=== PATIENT | male | born 1985 ===

== ENCOUNTER 2023-11-29 12:51 | Outpatient (AMB) | payer OTHER, SELFPAY ==
--- NOTE | 2023-11-29 12:54 | A.OFFPC_ITS ---
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
--- NOTE | 2023-11-29 12:54 | MHC.PC.OV ---
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
--- NOTE | 2023-11-29 13:04 | A.OFFPC_ITS ---
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 He followed with [facility] up until 8 years ago. He reports a significant past medical history of anxiety, depression, dyslipidemia and eczema. He is accompanied today by his , Shannon. CV: reports a hx of diet controlled dyslipidemia. bp is elevated today at 148/90. He states in the past he has controlled his blood pressure with diet and exercise. No chest pain or shortness a breath. He states that he is never needed to be on medications for this. He is active at home and with his job and states that he does not notice any dizziness, chest pain, palpitations, leg s welling. GI: he complains today of for the last 2-3 months he feels like his GI tract has slowed down. He states when he eats he gets bloated and does have belching. He feels like the food just sits there. He states sometimes when he eats he gets this sharp pain in his epigastric region across his abdomen. It is usually more located in the central aspect but does sometimes go to both sides. He has a gnawing pain at times in his abdomen that gets exacerbated with eating. Not eating makes it better. He has a history of GERD and states that he used to be on omeprazole but did not think about trying this because it does not feel the same. He states at that point he had had acid in chest pain in this was 8 years ago. He states that he did not really think that this could be related to heartburn. He has noticed some increased constipation over the last few months as well. He does have a daily bowel movement but sometimes feels that it is harder to go or that he has not fully gone. No rectal bleeding. He does get some nausea with the epigastric pain but no vomiting. No difficulty swallowing or weight changes. He states he is just very worried because his father had colon ca. He has not made diet modifications. He does endorse a relatively poor diet. Psych: states he has a hx of depression and anxiety. He does not feel like it is currently exacerbated and it was more related to his lifestyle. He has never been on medications for this and states that it has always resolved with exercise. He tells me that that is plan to start exercising with this. Denies any SI/HI. He does feel fatigue and sometimes wonders if it is related to the anxiety but also does not sleep well. He does report snoring often at night. His is present with him and states that at times she has noticed that he stops breathing. Derm: States he has a flare up of eczema on his on his right knee and hydrocortisone cream does not seem to be strong enough. It does help with the itching but his skin is still a bit inflamed. He also reports flaking and cracked skin on the bottom of his right foot. Hydrocortisone cream helps with the itching. 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 Sees ophthalmology annually. Overdue for a dental exam. [facility] Medical History (Updated 11/29/23 @ 14:08 by Swati Kuo PA-C) Atopic dermatitis Snoring Elevated blood pressure reading in office without diagnosis of hypertension Dyslipidemia Family History (Updated 11/29/23 @ 13:28 by Jaida Lopez CMA) Father Colon cancer HTN (hypertension) Hypercholesteremia Cardiovascular disease Alcoholism Maternal Grandmother Asthma Hypercholesteremia Paternal Grandmother HTN (hypertension) Maternal Grandfather HTN (hypertension) Alcoholism Paternal Grandfather HTN (hypertension) Alcoholism Mother Breast cancer Paternal Grandfather Alcoholism Other Substance abuse Social History (Updated 11/29/23 @ 13:13 by Jaida Lopez [facility]) Housing: House Patient Tobacco Use Status: Never used Tobacco e-Cigarette/Vaping Use: Never Used Second Hand Smoke Exposure: No service: No Current occupational status: employed Current occupation: [employer] Current occupational exposures/hazards: No Cognitive needs: No Hearing needs: No Vision needs: No Questionnaire PHQ-9 Over the last 2 weeks, how often have you been bothered by any of the following problems? 1. Little interest or pleasure in doing things: several days 2. Feeling down, depressed, or hopeless: several days 3. Trouble falling or staying asleep, or sleeping too much: not at all 4. Feeling tired or having little energy: more than half the days 5. Poor appetite or overeating: not at all 6. Feeling bad about yourself - or that you are a failure or have let yourself or your family down: several days 7. Trouble concentrating on things, such as reading the newspaper or watching television: several days 8. Moving or speaking so slowly that other people could have noticed. Or the opposite - being so fidgety or restless that you have been moving around a lot more than usual: not at all 9. Thoughts that you would be better off or of hurting yourself in some way: several days Total score: 7 Depression Screening Interpretation: Positive Depression Screening Follow-up: Existing condition, Follow-up Visit Requested and Declines treatment Depression Screening Done: Yes 13270 - PHQ-9 Billing: Yes Source: Developed by Drs. Jensen Maradiaga, Ammy Osorio, Carlitos Carrasco and colleagues, with an educational master from [employer]. Thrive Questionnaire Date Thrive assessed: 11/29/23 I am a: Patient What is your living situation today?: I have a steady place to live Within the past 12 months, did the food you bought not last and you didn't have the money to get more?: Never true Within the past 12 months, did you worry whether your food would run out before you got money to buy more?: Never true Do you have trouble paying for medicines?: No Do you have trouble getting transportation to medical appointments?: No Do you have trouble paying your heating and electricity bill?: No Do you have trouble taking care of your child, family member or friend?: No Do you have trouble with day-to-day activities such as bathing, preparing meals, shopping, managing finances, etc.?: No Are you currently unemployed and looking for a job?: No Are you interested in more education?: No Please select the resources that you would like help with: None Currently or been in a relationship where the following occur: no concerns reported THRIVE Score: 0 AUDIT C Alcohol Use Questionnaire (AUDIT-C) 1. How often do you have a drink containing alcohol?: Never 3. How often do you have six or more drinks on one occasion?: Never Total Score: 0 DENISE-7 AMB Questionnaire DENISE-7 Date DENISE - 7 assessed: 11/29/23 Feeling nervous, anxious, or on edge: 2 = More than half the days Not being able to stop or control worryin = More than half the days Worrying too much about different things: 1 = Several days Trouble relaxin = More than half the days Being so restless that it is hard to sit still: 0 = Not at all Becoming easily annoyed or irritable: 1 = Several days Feeling afraid as if something awful might happen: 1 = Several days Total DENISE-7 score (0-4 normal; 5-9 mild; 10-14 moderate; 15-21 severe): 9 Source: Developed by Drs. Jensen Maradiaga, Ammy Osorio, Carlitos Carrasco and colleagues, with an educational master from [employer]. DENISE-7 Assessment Billing DENISE-7 Assessment Tool: DENISE-7 Assessment 96146 Physical exam (Primary Care) Vital Signs: Last Vital Signs Temp 98.1 F 11/29/23 13:09 Pulse 98 11/29/23 13:09 Resp 16 11/29/23 13:09 BP 148/90 H 11/29/23 13:14 Pulse Ox 98 11/29/23 13:09 Oxygen Delivery Method Room Air 11/29/23 13:09 BMI result Body Mass Index 39.9 BMI Assessment/Plan discussion: High BMI High, discussed plan: lifestyle, weight reduction, dietary and physical activity Tobacco/Smoking Status: Tobacco use Status Tobacco use date assessed 11/29/23 11/29/23 13:13 Patient Tobacco Use Status Never used Tobacco 11/29/23 13:13 e-Cigarette/Vaping Use Never Used 11/29/23 13:13 PHQ-9: PHQ-9 Score PHQ-9: Total score 7 11/29/23 13:30 Depression Screening Interpretation: Positive Depression Screening Follow-up: Existing condition, Follow-up Visit Requested and Declines treatment Thrive Assessment: Date of Thrive Assessment Date Thrive assessed 11/29/23 11/29/23 13:30 Currently or been in a relationship where the following occur: no concerns reported Const Orientation/consciousness: patient oriented x3 HENMT Ears: hearing grossly normal bilaterally, external ears normal and TM's normal bilaterally General nose exam: Normal nasal mucous membranes and turbinates present Face and sinus: Yes sinuses nontender Mouth: Normal oral and palatal mucosa present Eyes Pupils: Equal, round and reactive pupils present EOM: EOMs intact bilaterally Neck Neck: Yes full ROM and Yes no lymphadenopathy Thyroid: Thyroid normal Resp Auscultation: clear to auscultation bilaterally Cardio Rate: regular rate Rhythm: regular rhythm Heart sounds: S1 normal heart sound present and S2 normal heart sound present Peripheral pulses: Peripheral pulses 2+ throughout GI Other: Soft, nontender, bowel sounds present. No CVA tenderness. No rebound or guarding. Rectal Exam - Male: Yes deferred Other: Declined testicular exam. Skin Other: There is a patch of papular, slightly erythematous skin noted over the anterior aspect of the right knee. It is nontender. There is white, flaky skin noted on the plantar aspect of the right foot. Neuro General: patient oriented x3, no focal motor deficits and CN's II-XI intact bilaterally Cranial nerves: Yes Equal, round and reactive pupils present Motor exam (neuro): 5/5 motor strength present throughout Coordination: [id number] test normal Romberg Test: Negative Extrem General: Yes normal to inspection and Yes full ROM Psych Thought content: Normal thought content present Insight: Good insight present (Psych) Judgement: Good judgement present (Psych) Assessment and Plan Assessment & Plan (1) Routine general medical examination at a health care facility: Code(s): Z00.00 - Encounter for general adult medical examination without abnormal findings Plan: Health maintenance reviewed. Labs ordered. (2) Dyslipidemia: Code(s): E78.5 - Hyperlipidemia, unspecified Plan: We will check lipids. We will follow up pending test results. (3) Elevated blood pressure reading in office without diagnosis of hypertension: Code(s): R03.0 - Elevated blood-pressure reading, without diagnosis of hypertension Plan: Does not believe he truly has hypertension. Advised to return for follow up in 2-4 weeks to be rechecked. If still elevated is in agreement to starting medication. Labs ordered today. (4) Snoring: Code(s): R06.83 - Snoring Plan: Sleep study ordered. Encouraged weight loss. (5) Atopic dermatitis: Code(s): L20.9 - Atopic dermatitis, unspecified Qualifiers: Atopic dermatitis type: unspecified Qualified Code(s): L20.9 - Atopic dermatitis, unspecified Plan: We will start on triamcinolone cream. Discussed risks and benefits and adverse effects such as atrophy of the skin with prolonged use. He would like to see Dermatology. Referral placed to [facility]. Phone number provided. (6) Constipation: Code(s): K59.00 - Constipation, unspecified Qualifiers: Constipation type: unspecified constipation type Qualified Code(s): K5 9.00 - Constipation, unspecified Plan: Encouraged hydration, increase fruits and vegetables, fiber and exercise. I have referred him to gastroenterology per his request. (7) Abdominal pain, acute, epigastric: Code(s): R10.13 - Epigastric pain Plan: Abdominal exam today is benign. We will try omeprazole. Advised to complete H pylori test prior to starting omeprazole. Labs ordered. We do have a short term follow up arranged in the next few weeks. He will follow up sooner if anything worsens or changes. (8) Fatigue: Code(s): R53.83 - Other fatigue Qualifiers: Fatigue type: chronic, unspecified Qualified Code(s): R53.82 - Chronic fatigue, unspecified Plan: Sleep study in labs ordered. We did discuss possibility of related to his poor sleep, depression, multifactorial. (9) Tinea pedis of right foot: Code(s): B35.3 - Tinea pedis Plan: We will start on clotrimazole cream. Plan Patient understands and agrees with the plan. Orders: Orders Complete Blood Count Auto Diff Today E78.5 - Hyperlipidemia, unspecified, K59.00 - Constipation, unspecified, R03.0 - Elevated blood-pressure reading, without diagnosis of hypertension, R06.83 - Snoring, R10.13 - Epigastric pain, R53.83 - Other fatigue, Z00.00 - Encounter for general adult medical examination without abnormal findings Comprehensive [place]. Panel Fast Today E78.5 - Hyperlipidemia, unspecified, K59.00 - Constipation, unspecified, R03.0 - Elevated blood-pressure reading, without diagnosis of hypertension, R06.83 - Snoring, R10.13 - Epigastric pain, R53.83 - Other fatigue, Z00.00 - Encounter for general adult medical examination without abnormal findings Lipid Panel Today E78.5 - Hyperlipidemia, unspecified, K59.00 - Constipation, unspecified, R03.0 - Elevated blood-pressure reading, without diagnosis of hypertension, R06.83 - Snoring, R10.13 - Epigastric pain, R53.83 - Other fatigue, Z00.00 - Encounter for general adult medical examination without abnormal findings TSH reflex Free T4 Today E78.5 - Hyperlipidemia, unspecified, K59.00 - Constipation, unspecified, R03.0 - Elevated blood-pressure reading, without diagnosis of hypertension, R06.83 - Snoring, R10.13 - Epigastric pain, R53.83 - Other fatigue, Z00.00 - Encounter for general adult medical examination without abnormal findings RT home sleep study Today E78.5 - Hyperlipidemia, unspecified, K59.00 - Constipation, unspecified, R03.0 - Elevated blood-pressure reading, without diagnosis of hypertension, R06.83 - Snoring, R10.13 - Epigastric pain, R53.83 - Other fatigue, Z00.00 - Encounter for general adult medical examination without abnormal findings H pylori Ag Stool Today R10.13 - Epigastric pain IRON PROFILE Today E78.5 - Hyperlipidemia, unspecified, K59.00 - Constipation, unspecified, R03.0 - Elevated blood-pressure reading, without diagnosis of hypertension, R06.83 - Snoring, R10.13 - Epigastric pain, R53.83 - Other fatigue, Z00.00 - Encounter for general adult medical examination without abnormal findings Vitamin B12 and Folate Today E78.5 - Hyperlipidemia, unspecified, K59.00 - Constipation, unspecified, R03.0 - Elevated blood-pressure reading, without diagnosis of hypertension, R06.83 - Snoring, R10.13 - Epigastric pain, R53.83 - Other fatigue, Z00.00 - Encounter for general adult medical examination without abnormal findings US abdomen complete Today R10.13 - Epigastric pain Referrals Gastroenterology Referral K59.00 - Constipation, unspecified, R10.13 - Epigastric pain, R53.83 - Other fatigue Dermatology Referral L20.9 - Atopic dermatitis, unspecified Medications: New clotrimazole 1% 1 appl topical BID 4 weeks 30 grams 3RF omeprazole 20 mg PO DAILY 30 days 30 caps 1RF triamcinolone acetonide 0.025% prn eczema flare 1 appl topical BID 14 days 80 grams 3RF Coding Level of Care Code New Pt Prev Care 40-64y(18316) Diagnoses Routine general medical examination at a health care facility Z00.00 Dyslipidemia E78.5 Elevated blood pressure reading in office without diagnosis of hypertension R03.0 Snoring R06.83 Atopic dermatitis, unspecified type L20.9 Atopic dermatitis type: unspecified Constipation, unspecified constipation type K59.00 Constipation type: unspecified constipation type Abdominal pain, acute, epigastric R10.13 Chronic fatigue R53.82 Fatigue type: chronic, unspecified Tinea pedis of right foot B35.3 Additional Codes DENISE-7 Assessment Billing - DENISE-7 Assessment Tool: DENISE-7 Assessment 21215 ([id number])
[2023-11-29 13:09] VITALS: BP 148/87; PULSE 98; RESP 16; TEMP 36.7; O2SAT 98; BMI 39.9
[2023-11-29 13:14] VITALS: BP 148/90
== END 2023-11-29 14:12 | disposition home or self-care (01) ==
PROVIDERS: PCP Physician Assistant; Visit Provider Physician Assistant
DX: Z00.00 Encounter for general adult medical examination without abnormal findings (principal); E78.5 Hyperlipidemia, unspecified; R03.0 Elevated blood-pressure reading, without diagnosis of hypertension; R06.83 Snoring; L20.9 Atopic dermatitis, unspecified; K59.00 Constipation, unspecified; R10.13 Epigastric pain; R53.82 Chronic fatigue, unspecified; B35.3 Tinea pedis
CPT/HCPCS: 99386

== ENCOUNTER 2023-11-30 07:48 | Outpatient (REF) | payer OTHER, SELFPAY ==
[2023-11-30 11:23] LABS: MANUAL DIFF FLAG NO
[2023-11-30 11:41] LABS: Basophils Percent Auto 0.6 % (0-2); Eosinophils Absolute Auto 0.1 X10*3/uL (0.0-0.4); Eosinophils Percent Auto 1.2 % (0-4); Hematocrit 44.7 % (42.0-52.0); Hemoglobin 14.5 g/dl (14.0-18.0); Imm Gran Abs Auto 0.06 X10*3/uL (0.00-0.03); Imm Gran Pct Auto 0.9 % (0.0-0.4); Mean Corpuscular HGB Conc 32.4 g/dl (31.0-36.0); Mean Corpuscular Hemoglobin 27.4 pg (27.0-33.0); Mean Corpuscular Volume 84.5 fL (80.0-98.0); Mean Platelet Volume 10.4 fL (9.4-12.4); Monocytes Absolute Auto 0.7 X10*3/uL (0.1-1.2); Monocytes Percent Auto 10.2 % (2-11); Neutrophils Percent Auto 58.1 % (45-73); Platelet Count 272 X10*3/uL (160-400); Red Blood Count 5.29 X10*6/uL (4.60-5.80); Red Cell Distribution Width 13.2 % (11.0-16.0); White Blood Count 6.8 X10*3/uL (4.8-10.8)
[2023-11-30 12:01] LABS: Alanine Aminotransferase 29 U/L (0-40); Albumin Level 4.3 g/dL (3.5-5.0); Alkaline Phosphatase 84 U/L (39-117); Anion Gap 9 (12-20); Aspartate Amino Transferase 28 U/L (5-37); Bilirubin Total 0.8 mg/dL (0.0-1.0); Blood Urea Nitrogen 12 mg/dL (9-16); Calcium 9.2 mg/dL (8.4-10.2); Carbon Dioxide 28 mmol/L (22-29); Chloride 105 mmol/L (96-108); Cholesterol 198 mg/dL (<200); Estimated Glomerular Filt Rate > 60; Glucose Fasting 96 mg/dL (60-99); HDL Cholesterol 38 mg/dL (>40); Iron 62 mcg/dL (45-160); LDL Cholesterol Calculated 136 mg/dL (<100); Percent Iron Saturation 21 % (15-50); Potassium 4.4 mmol/L (3.3-5.1); Sodium 138 mmol/L (135-145); Total Iron Binding Capacity 298 mcg/dL (228-428); Total Protein 7.1 g/dL (6.5-8.0); Triglycerides 122 mg/dL (<150); Unsaturated Iron Binding 236 ug/dL
[2023-11-30 12:19] LABS: TSH reflex Free T4 2.01 uIU/mL (0.32-4.0)
[2023-11-30 18:02] LABS: Folate 10.9 ng/mL (> or = 4.0); Vitamin B12 439 pg/mL (200-900)
== END 2023-11-30 07:49 | disposition home or self-care (01) ==
LOC: HO.WFDLDS 07:48
PROVIDERS: Visit Provider Physician Assistant
DX: Z00.00 Encounter for general adult medical examination without abnormal findings (principal); R10.13 Epigastric pain; R06.83 Snoring; R03.0 Elevated blood-pressure reading, without diagnosis of hypertension; E78.5 Hyperlipidemia, unspecified; K59.00 Constipation, unspecified; R53.83 Other fatigue
CPT/HCPCS: 36415; 80053; 80061; 82607; 82746; 83540; 84443; 85025

== ENCOUNTER 2023-12-08 07:54 | Outpatient (REF) | payer OTHER, SELFPAY ==
--- NOTE | ~2023-12-08 | US_ITS ---
EXAMINATION: US ABDOMEN COMPLETE CLINICAL INFORMATION: Epigastric pain. COMPARISON: None available. TECHNIQUE: Real-time imaging of the abdominal viscera. Limited visualization due to bowel gas. FINDINGS: PANCREAS: Limited visualization. ABDOMINAL AORTA: Limited visualization. Imaged portion of [id number] abdominal aorta is unremarkable. INFERIOR VENA CAVA: Visualized portions are normal. LIVER: Hepatomegaly, 17.4 cm. Increased hepatic parenchymal heterogeneity and echogenicity could be associated with hepatocellular disease/hepatic steatosis and substantially limits visualization. 2.0 x 0.9 x 1.3 cm fairly well-circumscribed hypoechoic lesion in the right hepatic lobe. Hypoechoic areas within the liver adjacent to the gallbladder may represent areas of focal sparing within a fatty liver. GALLBLADDER: No gallstones. No gallbladder wall thickening. COMMON BILE DUCT: Normal in caliber measuring 0.4 cm in diameter. RIGHT KIDNEY: No hydronephrosis. No renal calculi. Limited visualization. The kidney measures 12.4 cm in maximum dimension. LEFT KIDNEY: No hydronephrosis. No renal calculi. Limited visualization. The kidney measures 12.4 cm in maximum dimension. SPLEEN: Normal. The spleen measures 10.8 cm in maximum dimension. FREE FLUID: None. US/US abdomen complete IMPRESSION: Hepatomegaly, 17.4 cm. Increased hepatic parenchymal heterogeneity and echogenicity could be associated with hepatocellular disease/hepatic steatosis and substantially limits visualization. Hypoechoic areas within the liver adjacent to the gallbladder may represent areas of focal sparing within a fatty liver. 2.0 cm fairly well-circumscribed hypoechoic lesion in the right hepatic lobe. MRI is recommended for further characterization.
== END 2023-12-08 07:55 | disposition home or self-care (01) ==
LOC: HO.US 07:54
PROVIDERS: PCP Physician Assistant; Visit Provider Physician Assistant
DX: R10.13 Epigastric pain (principal)
CPT/HCPCS: 76700

== ENCOUNTER 2023-12-20 14:35 | Outpatient (AMB) | payer OTHER, SELFPAY ==
--- NOTE | 2023-12-20 14:46 | A.OFFPC_ITS ---
Vital Signs 12/20/23 14:49 Height 5 ft 8 in Weight 259 lb 8 oz BMI 39.5 BP 118/64 Blood Pressure Location Rt brachial Position Sitting Respiration 16 Pulse 98 Pulse Source Pulse Oximeter Pulse Oximetry (%) 97 Oxygen Delivery Method Room Air Intake Visit Reasons: bp recheck, lab follow up Intake Note: Follow up hypertension Services Engineer Required: No Allergies No Known Allergies Allergy (Verified 12/20/23 14:47) Medication List - Last Reconciled 12/20/23 by Swati Kuo PA-C clotrimazole 1% 1 appl topical BID 4 weeks loratadine (Allergy Relief (loratadine)) 10 mg PO DAILY omeprazole 20 mg PO DAILY 30 days triamcinolone acetonide 0.025% 1 appl topical BID 14 days Tobacco use date assessed: 11/29/23 Dental Screening Dental Screen Date: 11/29/23 HPI bp recheck, lab follow up HPI Details Patient is a 38-year-old male who has a significant past medical history of anxiety, depression, dyslipidemia and eczema presenting today for a bp follow up. CV: bp is today is 118/64. He states in the past he has controlled his blood pressure with diet and exercise. He states since our last visit he has been more careful with his diet and started exercising. His last cholesterol was a little elevated. He states he has cut back on butter, reducing fried foods. No chest pain or shortness a breath. He states that he is never needed to be on medications for this. He is active at home and with his job and states that he does not notice any dizziness, chest pain, palpitations, leg swelling. GI: He states the omeprazole has helped with heartburn and belching. He states he is still having abdominal discomfort and intermittent constipation. He did have an ultrasound which showed a liver lesion requiring an MRI. He states that is booked January 14. IMPRESSION: Hepatomegaly, 17.4 cm. Increased hepatic parenchymal heterogeneity and echogenicity could be associated with hepatocellular disease/hepatic steatosis and substantially limits visualization. Hypoechoic areas within the liver adjacent to the gallbladder may represent areas of focal sparing within a fatty liver. 2.0 cm fairly well-circumscribed hypoechoic lesion in the right hepatic lobe. MRI is recommended for further characterization Psych: states he has a hx of depression and anxiety. He feels better since exercising. Denies any SI/HI. He does feel fatigue and sometimes wonders if it is related to the anxiety but also does not sleep well. He does report snoring often at night. His is present with him and states that at times she has noticed that he stops breathing. -unchanged from last appointment. He has not heard yet about a sleep study. His is worried because she states that he stops breathing in his sleep. Derm: Triamcinolone cream has been helpful. He is seeing [place] [facility] January 29. 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 Sees ophthalmology annually. Overdue for a dental exam. [facility] Medical History (Updated 12/20/23 @ 15:19 by Swati Kuo PA-C) Obesity, Class II, BMI 35-39.9, no comorbidity Generalized anxiety disorder Abnormal liver ultrasound Liver lesion Atopic dermatitis Snoring Elevated blood pressure reading in office without diagnosis of hypertension Dyslipidemia Family History (Updated 11/29/23 @ 13:28 by Jaida Lopez [facility]) Father Colon cancer HTN (hypertension) Hypercholesteremia Cardiovascular disease Alcoholism Maternal Grandmother Asthma Hypercholesteremia Paternal Grandmother HTN (hypertension) Maternal Grandfather HTN (hypertension) Alcoholism Paternal Grandfather HTN (hypertension) Alcoholism Mother Breast cancer Paternal Grandfather Alcoholism Other Substance abuse Social History (Updated 11/29/23 @ 13:13 by Jaida Lopez [facility]) Housing: House Patient Tobacco Use Status: Never used Tobacco e-Cigarette/Vaping Use: Never Used Second Hand Smoke Exposure: No service: No Current occupational status: employed Current occupation: [employer] Current occupational exposures/hazards: No Cognitive needs: No Hearing needs: No Vision needs: No Questionnaire Thrive Questionnaire Date Thrive assessed: 11/29/23 DENISE-7 AMB Questionnaire DENISE-7 Date DENISE - 7 assessed: 11/29/23 Source: Developed by Drs. Jensen Maradiaga, Ammy Osorio, Carlitos Carrasco and colleagues, with an educational master from [employer]. Physical exam (Primary Care) Vital Signs: Last Vital Signs Pulse 98 12/20/23 14:49 Resp 16 12/20/23 14:49 BP 118/64 12/20/23 14:49 Pulse Ox 97 12/20/23 14:49 Oxygen Delivery Method Room Air 12/20/23 14:49 BMI result Body Mass Index 39.5 Tobacco/Smoking Status: Tobacco use Status Tobacco use date assessed 11/29/23 12/20/23 14:46 Patient Tobacco Use Status Never used Tobacco 12/20/23 14:46 e-Cigarette/Vaping Use Never Used 12/20/23 14:46 Thrive Assessment: Date of Thrive Assessment Date Thrive assessed 11/29/23 12/20/23 14:46 Const Orientation/consciousness: patient oriented x3 HENMT Ears: hearing grossly normal bilaterally Neck Thyroid: Thyroid normal Lymphatic: no lymphadenopathy noted Resp Auscultation: clear to auscultation bilaterally Cardio Rate: regular rate Rhythm: regular rhythm Heart sounds: S1 normal heart sound present and S2 normal heart sound present GI Inspection: Yes normal to inspection Palpation (GI): Soft to palpation and Other GI palpation findings present (nontender, no cva tenderness) Auscultation: normoactive bowel sounds Rectal Exam - Male: Yes deferred Neuro General: patient oriented x3, gait normal and no focal motor deficits Results Reviewed Results Reviewed: Laboratory Tests 11/30/23 11/30/23 07:51 07:52 WBC 6.8 RBC 5.29 Hgb 14.5 Hct 44.7 Plt Count 272 Sodium 138 Potassium 4.4 Chloride 105 Carbon Dioxide 28 Anion Gap 9 L BUN 12 Creatinine 0.91 Estimated GFR > 60 Fasting Glucose 96 Calcium 9.2 Iron 62 TIBC 298 % Saturation 21 Unsat Iron Binding 236 Total Bilirubin 0.8 AST 28 ALT 29 Alkaline Phosphatase 84 Total Protein 7.1 Albumin 4.3 Triglycerides 122 Cholesterol 198 LDL Cholesterol, Calc 136 H HDL Cholesterol 38 L Vitamin B12 439 Folate 10.9 TSH 2.01 FINDINGS: PANCREAS: Limited visualization. ABDOMINAL AORTA: Limited visualization. Imaged portion of [id number] abdominal aorta is unremarkable. INFERIOR VENA CAVA: Visualized portions are normal. LIVER: Hepatomegaly, 17.4 cm. Increased hepatic parenchymal heterogeneity and echogenicity could be associated with hepatocellular disease/hepatic steatosis and substantially limits visualization. 2.0 x 0.9 x 1.3 cm fairly well-circumscribed hypoechoic lesion in the right hepatic lobe. Hypoechoic areas within the liver adjacent to the gallbladder may represent areas of focal sparing within a fatty liver. GALLBLADDER: No gallstones. No gallbladder wall thickening. COMMON BILE DUCT: Normal in caliber measuring 0.4 cm in diameter. RIGHT KIDNEY: No hydronephrosis. No renal calculi. Limited visualization. The kidney measures 12.4 cm in maximum dimension. LEFT KIDNEY: No hydronephrosis. No renal calculi. Limited visualization. The kidney measures 12.4 cm in maximum dimension. SPLEEN: Normal. The spleen measures 10.8 cm in maximum dimension. FREE FLUID: None. US/US abdomen complete IMPRESSION: Hepatomegaly, 17.4 cm. Increased hepatic parenchymal heterogeneity and echogenicity could be associated with hepatocellular disease/hepatic steatosis and substantially limits visualization. Hypoechoic areas within the liver adjacent to the gallbladder may represent areas of focal sparing within a fatty liver. 2.0 cm fairly well-circumscribed hypoechoic lesion in the right hepatic lobe. MRI is recommended for further characterization. Assessment and Plan Assessment & Plan (1) Liver lesion: Code(s): K76.9 - Liver disease, unspecified Plan: MRI scheduled 01/14. Will follow up pending results He has been referred already to GI (2) Snoring: Code(s): R06.83 - Snoring Plan: Sleep study was ordered 11/29/23. I did tell and she look into this today. I have also referred him to sleep Medicine. Phone number provided. We did discuss with the witnessed apnea, fatigue, obesity and snoring I do suspect he has sleep apnea. I have encouraged weight loss. (3) Dyslipidemia: Code(s): E78.5 - Hyperlipidemia, unspecified Plan: discussed low fat diet. Will recheck in 6 months. He will follow up at that time. (4) Atopic dermatitis: Code(s): L20.9 - Atopic dermatitis, unspecified Qualifiers: Atopic dermatitis type: unspecified Qualified Code(s): L20.9 - Atopic dermatitis, unspecified Plan: will follow with [place] [facility] continue triamcinolone cream (5) Generalized anxiety disorder: Code(s): F41.1 - Generalized anxiety disorder Plan: continue exercise. overall well controlled (6) Obesity, Class II, BMI 35-39.9, no comorbidity: Code(s): E66.9 - Obesity, unspecified Orders: Referrals Sleep Medicine Referral E66.9 - Obesity, unspecified, R06.81 - Apnea, not elsewhere classified, R06.83 - Snoring Coding Level of Care Code Est Pt Level 4 (44545) Complex EM visit Add On G2211 Diagnoses Liver lesion K76.9 Snoring R06.83 Dyslipidemia E78.5 Atopic dermatitis, unspecified type L20.9 Atopic dermatitis type: unspecified Generalized anxiety disorder F41.1 Obesity, Class II, BMI 35-39.9, no comorbidity E66.9
[2023-12-20 14:49] VITALS: BP 118/64; PULSE 98; RESP 16; O2SAT 97; BMI 39.5
== END 2023-12-20 15:25 | disposition home or self-care (01) ==
PROVIDERS: PCP Physician Assistant; Visit Provider Physician Assistant
DX: K76.9 Liver disease, unspecified (principal); Z68.39 Body mass index [BMI] 39.0-39.9, adult; R06.83 Snoring; E66.9 Obesity, unspecified; E78.5 Hyperlipidemia, unspecified; L20.9 Atopic dermatitis, unspecified; F41.1 Generalized anxiety disorder
CPT/HCPCS: 99214; G2211

== ENCOUNTER 2023-12-20 16:11 | Outpatient (REF) | payer OTHER, SELFPAY ==
--- NOTE | ~2023-12-20 | XR_ITS ---
EXAMINATION: XR CHEST CLINICAL INFORMATION: Pre-MRI screening. COMPARISON: None. TECHNIQUE: PA and lateral views of the chest were obtained. FINDINGS: No radiopaque foreign body. The cardiac and mediastinal contours is normal. There is no pulmonary vascular congestion. There is no acute airspace disease or pleural effusion. XR/XR pre mri screening IMPRESSION: Normal chest.
== END 2023-12-20 16:12 | disposition home or self-care (01) ==
LOC: HO.XRAY 16:11
PROVIDERS: PCP Physician Assistant; Visit Provider Internal Medicine
DX: Z13.89 Encounter for screening for other disorder (principal)

== ENCOUNTER 2024-01-15 07:37 | Outpatient (REF) | payer OTHER, SELFPAY ==
--- NOTE | ~2024-01-15 | MR_ITS ---
EXAMINATION: MR ABDOMEN WITHOUT AND WITH CONTRAST CLINICAL INFORMATION: Liver disease COMPARISON: Previous abdominal ultrasound November 2023 TECHNIQUE: MR abdomen was performed without and with use of 10 mL intravenous Gadavist gadolinium contrast. Postcontrast images are performed in multiphase dynamic sequences. Imaging was performed in 3 planes. FINDINGS: LUNG BASES: The visualized lung bases are unremarkable. LIVER, GALLBLADDER, AND BILIARY TREE: Liver is slightly enlarged, right lobe measuring 19 cm in length. There is fatty infiltration of the liver with areas of focal fatty sparing. No focal liver lesion seen. Normal gallbladder. Normal intra and extrahepatic bile ducts. No ascites. PANCREAS: Unremarkable. SPLEEN: Normal. ADRENAL GLANDS: Normal. KIDNEYS AND URETERS: The kidneys are normal in size, shape, and enhance symmetrically. No hydronephrosis. No perinephric stranding. GASTROINTESTINAL TRACT: No bowel obstruction. No ascites or fluid collection. ABDOMINAL WALL: No significant hernia is appreciated. LYMPH NODES: No lymphadenopathy. VASCULAR: Unremarkable. OSSEOUS STRUCTURES: Marrow signal normal. MR/MR abdomen wo/w con IMPRESSION: Slightly enlarged fatty liver with areas of focal fatty sparing. No suspicious liver lesion seen.
[2024-01-15] MEDS: gadobutroL 10 ML VIAL IVPUSH (09:11)
== END 2024-01-15 07:38 | disposition home or self-care (01) ==
LOC: HO.MRI 07:37
PROVIDERS: PCP Physician Assistant; Visit Provider Physician Assistant
DX: K76.9 Liver disease, unspecified (principal); R93.2 Abnormal findings on diagnostic imaging of liver and biliary tract
CPT/HCPCS: 74183; A9585

== ENCOUNTER 2024-02-23 15:05 | Outpatient (AMB) | payer OTHER, SELFPAY ==
[2024-02-23 15:07] VITALS: BP 140/88; PULSE 90; BMI 39.6
--- NOTE | 2024-02-23 15:07 | MHC.OFFVIS ---
Vital Signs 02/23/24 15:07 Height 5 ft 8 in Weight 260 lb 2.327 oz BMI 39.6 BP 140/88 H Blood Pressure Location Lt brachial Position Sitting Pulse 90 Intake Visit Reasons: Constipation Intake Note: New patient in office today for constipation. CC: He states that he is here today because he is having a hard time digesting foods. MRI of liver that came out with fatty liver. He states that he is having sharp pains in the left upper quadrant. He was having constipation at the time for a week but it is rare for him. 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 Patient was sent to us by his PCP. Patient had constipation for 1 week with abdominal pain, bloating was seen by PCP and abdominal ultrasound was done. Showed fatty sparing and increase echogenicity of the liver, MRI repeated did not show any liver lesion except for fatty sparing due to increase echogenicity of the liver. Patient is overweight have gained weight in the past few years. Patient reports that he does not feel like he is constipated, however he does feel like the food does not get digested right. Patient moves his bowels daily, however he states that he does not feel like he empties them completely. Frequent abdominal bloating postprandially and epigastric pain. Patient states that he is taking omeprazole his symptoms are better, however he continues to have occasional epigastric pain and bloating at night time. Patient denies any dyspepsia, dysphagia or odynophagia. Denies melena, hematochezia, unintentional weight loss or ribbon like stools. All his blood work and studies reviewed with patient in discussed with him again today. [facility] Medical History (Updated 02/25/24 @ 14:26 by Aretha Curtis [facility]) Obesity, Class II, BMI 35-39.9, no comorbidity Generalized anxiety disorder Abnormal liver ultrasound Atopic dermatitis Snoring Elevated blood pressure reading in office without diagnosis of hypertension Dyslipidemia Family History Father Colon cancer HTN (hypertension) Hypercholesteremia Cardiovascular disease Alcoholism Maternal Grandmother Asthma Hypercholesteremia Paternal Grandmother HTN (hypertension) Maternal Grandfather HTN (hypertension) Alcoholism Paternal Grandfather HTN (hypertension) Alcoholism Mother Breast cancer Paternal Grandfather Alcoholism Other Substance abuse Social History Housing: House Patient Tobacco Use Status: Never used Tobacco e-Cigarette/Vaping Use: Never Used Second Hand Smoke Exposure: No service: No Current occupational status: employed Current occupation: [employer] Current occupational exposures/hazards: No Cognitive needs: No Hearing needs: No Vision needs: No Review of Systems Const Denies weight gain and Denies weight loss ENT Reports no additional complaints, Denies dysphagia and Denies odynophagia Card Reports no additional complaints Resp Reports no additional complaints GI Reports abdominal pain (Epigastric), Denies belching, Denies melena, Reports bloating, Denies change in bowel habits, Reports constipation (Occasional), Denies dysphagia, Denies excessive flatus, Denies dyspepsia, Reports heartburn, Denies diarrhea, Denies loose stools, Denies nausea, Denies odynophagia and Denies vomiting Reports no additional complaints Musc Reports no additional complaints Neuro Reports no additional complaints Psych Reports no additional complaints Endo Reports no additional complaints Physical Exam Vital Signs: Last Vital Signs Pulse 90 02/23/24 15:07 BP 140/88 H 02/23/24 15:07 BMI result Body Mass Index 39.6 Const General: healthy appearing and no acute distress Nutritional Appearance: obese Orientation/consciousness: patient oriented x3 Resp Effort & Inspection: normal respiratory effort, able to speak in complete sentences, no tracheal deviation and symmetric chest movement Auscultation: clear to auscultation bilaterally Cardio Rate: regular rate GI Inspection: Yes normal to inspection, No distended and Yes obesity Palpation (GI): Soft to palpation, not firm, nontender and No hepatosplenomegaly present Auscultation: normal bowel sounds General: Yes no CVA tenderness Back/Spine/Pelvis Back: no CVA tenderness Skin General skin exam: elasticity normal, turgor normal and dry skin Neuro General: patient oriented x3 Psych Appearance: grossly normal Mental Status: mental status grossly normal Results Reviewed Results Reviewed: IMPRESSION: Hepatomegaly, 17.4 cm. Increased hepatic parenchymal heterogeneity and echogenicity could be associated with hepatocellular disease/hepatic steatosis and substantially limits visualization. Hypoechoic areas within the liver adjacent to the gallbladder may represent areas of focal sparing within a fatty liver. 2.0 cm fairly well-circumscribed hypoechoic lesion in the right hepatic lobe. MRI is recommended for further characterization. Laboratory Tests 11/30/23 07:52 Total Bilirubin 0.8 AST 28 ALT 29 MRI OF ABDOMEN IMPRESSION: Slightly enlarged fatty liver with areas of focal fatty sparing. No suspicious liver lesion seen. Assessment & Plan Assessment & Plan (1) Abnormal liver ultrasound: Code(s): R93.2 - Abnormal findings on diagnostic imaging of liver and biliary tract Category: Medical (2) Hepatic steatosis: Code(s): K76.0 - Fatty (change of) liver, not elsewhere classified (3) Postprandial abdominal bloating: Code(s): R14.0 - Abdominal distension (gaseous) (4) Postprandial epigastric pain: Code(s): R10.13 - Epigastric pain (5) GERD (gastroesophageal reflux disease): Code(s): K21.9 - Gastro-esophageal reflux disease without esophagitis Qualifiers: Esophagitis presence: esophagitis presence not specified Qualified Code(s): K21.9 - Gastro-esophageal reflux disease without esophagitis (6) Constipation: Code(s): K59.00 - Constipation, unspecified Qualifiers: Constipation type: slow transit constipation Qualified Code(s): K59.01 - Slow transit constipation Plan Postprandial epigastric pain will check lipase and transglutaminase rule out chronic pancreatitis and celiac. Low FODMAP diet discussed with patient. He reports abdominal bloating postprandially most likely related to inability to empty his bowels completely and the food that he eats. List of food recommended as well as list of food to avoid given to patient. Patient will start taking senna to help him empty his bowels better. Increase fluid intake and activity to promote better bowel motility. Discussed with him eating smaller meals and more often. Avoid eating late at night. Staying upright for minimum 3 hours after meals discussed with patient. Patient will hold omeprazole for the next 2 weeks and will take famotidine instead. Will return in 2 weeks to get H pylori testing and we will treat empirically if positive. Patient will follow-up in the office in 4 months, sooner on as needed basis. He is agreeable to this plan and verbalizes understanding of instructions. He was given the opportunity to ask questions and all questions answered. Thank you for allowing me to participate in his care Orders: Orders Lipase 02/23/24 R10.9 - Unspecified abdominal pain Transglutaminase Ab IgG 02/23/24 R10.9 - Unspecified abdominal pain Transglutaminase IgA 02/23/24 R10.9 - Unspecified abdominal pain Medications: New famotidine (Pepcid) 20 mg PO DAILY 30 tabs 3RF K21.9 - Gastro-esophageal reflux disease without esophagitis sennosides (Natural Senna Laxative) 17.2 mg (2 x 8.6 mg) PO BEDTIME 60 tabs 3RF constipation K59.00 - Constipation, unspecified Coding Level of Care Code New Pt Level 4 (03782) Diagnoses Abnormal liver ultrasound R93.2 Hepatic steatosis K76.0 Postprandial abdominal bloating R14.0 Postprandial epigastric pain R10.13 Gastroesophageal reflux disease, unspecified whether esophagitis present K21.9 Esophagitis presence: esophagitis presence not specified Slow transit constipation K59.01 Constipation type: slow transit constipation Time Spent (min) 45 Comment 30 minutes spent with patient and additional 15 minutes spent reviewing his records
== END 2024-02-23 15:45 | disposition home or self-care (01) ==
PROVIDERS: PCP Physician Assistant; Visit Provider Nurse Practitioner Family
DX: R93.2 Abnormal findings on diagnostic imaging of liver and biliary tract (principal); K76.0 Fatty (change of) liver, not elsewhere classified; R14.0 Abdominal distension (gaseous); R10.13 Epigastric pain; K21.9 Gastro-esophageal reflux disease without esophagitis; K59.01 Slow transit constipation
CPT/HCPCS: 99204

== ENCOUNTER → 2024-02-23 15:05 | Outpatient (BNVA) | payer OTHER, SELFPAY | PROVIDERS: PCP Physician Assistant; Visit Provider Nurse Practitioner Family ==

== ENCOUNTER 2024-03-11 08:57 | Outpatient (AMB) | payer OTHER, SELFPAY ==
--- NOTE | 2024-03-11 09:11 | AM.OFFVISNUR ---
Intake Visit Reasons: H pylori Allergies No Known Allergies Allergy (Verified 02/23/24 15:14) Nursing Note Patient presents for collection of H Pylori breath test. Patient has been fasting for 1 hour (nothing to eat, drink, no chewing gum or smoking) has not taken any antacid medication for at least 2 weeks and has no allergies to artificial sweeteners.?? Assessment & Plan Assessment & Plan (1) Abnormal liver ultrasound: Code(s): R93.2 - Abnormal findings on diagnostic imaging of liver and biliary tract Category: Medical Plan Patient presents for collection of H Pylori breath test. Patient has been fasting for 1 hour (nothing to eat, drink, no chewing gum or smoking) has not taken any antacid medication for at least 2 weeks and has no allergies to artificial sweeteners.???This test checks for an overgrowth of bacteria in your stomach. We all have bacteria but some may have more than others. It is treatable. if the test comes back negative there is nothing else to do. If the test result is positive we will treat you with 2 antibiotics and a medication to decrease the acid in your stomach (PPI) for 2 weeks. Two weeks after you have completed the treatment we will retest you to make sure the overgrowth has resolved. Orders: Orders H Pylori Breath Test Today Patient Instructions: Process for specimen collection and reason for testing was explained to the patient. Specimen collection. Patient instructed to take a deep breath and then exhale into the blue bag, filling it up as much as possible. Patient instructed to drink a mixture of water and the artificial sweetener with a straw. A 15 minute wait period was observed. Patient instructed to take a deep breath and then exhale into the pink bag, filling it up as much as possible.??
== END 2024-03-11 09:18 | disposition home or self-care (01) ==
PROVIDERS: PCP Physician Assistant; Visit Provider Nurse Practitioner Family
DX: R93.2 Abnormal findings on diagnostic imaging of liver and biliary tract (principal)

== ENCOUNTER 2024-03-11 08:57 | Outpatient (REF) | payer OTHER, SELFPAY ==
[2024-03-11 15:35] LABS: H Pylori Breath Test Positive (Negative)
== END 2024-03-11 08:58 | disposition home or self-care (01) ==
LOC: HO.LNP 08:57
PROVIDERS: PCP Physician Assistant; Visit Provider Nurse Practitioner Family
DX: Z11.2 Encounter for screening for other bacterial diseases (principal); R93.2 Abnormal findings on diagnostic imaging of liver and biliary tract
CPT/HCPCS: 83013; 99211

== ENCOUNTER 2024-03-21 08:51 | Outpatient (REF) | payer OTHER, SELFPAY ==
[2024-03-21 11:32] LABS: Lipase 8 U/L (8-78)
[2024-03-22 21:34] LABS: Transglutaminase Ab IgG <1.0 U/mL; Transglutaminase IgA <1.0 U/mL
== END 2024-03-21 08:52 | disposition home or self-care (01) ==
LOC: HO.WFDLDS 08:51
PROVIDERS: Visit Provider Nurse Practitioner Family
DX: R10.9 Unspecified abdominal pain (principal)
CPT/HCPCS: 36415; 83690; 86364

== ENCOUNTER 2024-03-22 11:20 | Outpatient (REF) | payer OTHER, SELFPAY | END 2024-03-22 11:21 | disposition home or self-care (01) | LOC: HO.LNP 11:20 | PROVIDERS: Visit Provider Physician Assistant | DX: R10.13 Epigastric pain (principal) | CPT/HCPCS: 87338 ==